=== PATIENT | male | born 1945 | race African-American/Black ===

== ENCOUNTER 2019-12-04 18:59 | Emergency (ER) | payer OTHER ==
[~2019-12-04] VITALS: Ht 170.2 cm; Wt 77.1 kg
[2019-12-04 19:50] LABS: Basophils # (auto) 0 10 ^3/uL (0-0.2); Basophils % (auto) 0.8 % (0.0-2.0); Eosinophils # (auto) 0 10 ^3/uL (0-0.8); Eosinophils % (auto) 0.5 % (0.0-7.0); Hematocrit 42.6 % (41.0-53.0); Hemoglobin 14.4 g/dL (13.5-17.5); Lymphocytes # (auto) 1.7 10 ^3/uL (0.4-5.4); Lymphocytes % (auto) 33.9 % (10.0-50.0); Mean Corpuscular Hemoglobin 30.8 pg (28.0-32.0); Mean Corpuscular Hgb Conc. 33.7 g/dL (32.0-36.0); Mean Corpuscular Volume 91.4 fL (80.0-100.0); Monocytes # (auto) 0.4 10 ^3/uL (0-1.3); Monocytes % (auto) 8.8 % (0.0-12.0); Neutrophils # (auto) 2.8 10 ^3/uL (1.6-8.6); Nucleated Red Blood Cells % 0.1 %; Platelet Count (auto) 203 10^3/uL (140-450); Red Blood Cells 4.66 10^6/uL (4.5-5.90)
[2019-12-04 20:07] LABS: INR 1.12 (0.9-1.15); Partial Thromboplastin Time 28.8 sec (23.64-32.05)
[2019-12-04 20:09] LABS: Alanine Aminotransferase 20 U/L (16-61); Albumin 3.3 g/dL (3.4-5.0); Anion Gap 7 (5-15); Aspartate Aminotransferase 16 U/L (15-37); BUN/Creatinine Ratio 13.6; Blood Urea Nitrogen 16 mg/dL (7-18); Calcium 8.8 mg/dL (8.5-10.1); Carbon Dioxide 23 mmol/L (21-32); Chloride 110 mmol/L (98-107); GFR African American 77 mL/min; GFR Non-African American 64 mL/min; Glucose 108 mg/dL (74-106); Sodium 140 mmol/L (136-145)
[2019-12-04 20:12] LABS: Alkaline Phosphatase 48 U/L (45-117); Bilirubin, Total 0.4 mg/dL (0.2-1.0)
[2019-12-04 21:04] LABS: Blood Alcohol < 3.0 mg/dL (0-5); Magnesium 1.7 mg/dL (1.6-2.6)
[2019-12-04 21:18] LABS: Urine Bacteria FEW /hpf (None Seen); Urine Blood Negative /uL (Negative); Urine Specific Gravity 1.018 (1.001-1.035); Urine Sperm PRESENT /hpf (None Seen); Urine WBC <1 /hpf (0 - 3)
[2019-12-04] MEDS ORDERED: ASPirin-EC 81 mg tab PO ONE (22:00)
[2019-12-04] MEDS ORDERED: cloNIDine HCL 0.1 MG TAB PO ONE (23:00)
[2019-12-05 00:55] VITALS: BP 195/88
[2019-12-05] MEDS ORDERED: LABETALOL HCL 5 MG/ML 4ML SYRINGE IV ONE (01:00)
== END 2019-12-05 01:14 | disposition short-term general hospital (02) ==
LOC: EDBD 18:59 → ER 18:59
DX: R42 Dizziness and giddiness (principal); R47.81 Slurred speech; G45.9 Transient cerebral ischemic attack, unspecified; R00.1 Bradycardia, unspecified; E11.9 Type 2 diabetes mellitus without complications; E78.5 Hyperlipidemia, unspecified; I10 Essential (primary) hypertension
CPT/HCPCS: 36415; 70450; 71045; 80053; 80320; 81001; 83735; 84484; 85025; 85610; 85730; 93005; 96374; 99291

== ENCOUNTER 2023-07-03 16:16 | Inpatient (IN) | payer OTHER ==
[~2023-07-03] VITALS: Ht 170.2 cm; Wt 63.1 kg
[2023-07-03] VITALS (9 sets, daily range): BP systolic 141–176; BP diastolic 73–88; PULSE 51–75; RESP 14–18; TEMP 97.9–98; O2SAT 96–100
[2023-07-03] MEDS ORDERED: LIDOCAINE 2%HCL (LOCAL ANESTH.) INJ 20ML MDV ONE (16:29)
[2023-07-03] MEDS ORDERED: IOHEXOL 350 MG/ML 100ML IJ ONE (16:29)
[2023-07-03 16:38] LABS: Basophils # (auto) 0 10 ^3/uL (0-0.2); Basophils % (auto) 0.5 % (0.0-2.0); Eosinophils # (auto) 0 10 ^3/uL (0-0.8); Eosinophils % (auto) 0.3 % (0.0-7.0); Hematocrit 40.3 % (41.0-53.0); Hemoglobin 13.7 g/dL (13.5-17.5); Lymphocytes # (auto) 1.5 10 ^3/uL (0.4-5.4); Mean Corpuscular Hgb Conc. 33.9 g/dL (32.0-36.0); Mean Corpuscular Volume 91.6 fL (80.0-100.0); Monocytes # (auto) 0.5 10 ^3/uL (0-1.3); Neutrophils # (auto) 4.3 10 ^3/uL (1.6-8.6); Neutrophils % (auto) 67.2 % (37.0-80.0); Red Cell Distribution Width 15.4 % (11.8-14.3); White Blood Cell 6.4 10^3/uL (4.4-10.8)
[2023-07-03] MEDS ORDERED: ATROPINE SULF 1 MG/10ml SYR ONE (16:42)
[2023-07-03] MEDS ORDERED: SODIUM CHL 0.9% 50 ML ONE (16:42)
[2023-07-03] MEDS ORDERED: MIDAZOLAM HCL 2MG/2ML 2ml VIAL (1mg/ml) ONE (16:42)
[2023-07-03] MEDS ORDERED: EPINEPHrine HCL 1 MG/10 ML SYRG ONE (16:42)
[2023-07-03] MEDS ORDERED: fentaNYL CITRATE 100 MCG/2 ML VL ONE (16:42)
[2023-07-03] MEDS ORDERED: ANGIOMAX 250 MG VIAL IV ONE (16:42)
[2023-07-03] MEDS ORDERED: VERAPAMIL 2.5MG/ML INJ 2ML VIAL IV ONE (16:43)
[2023-07-03] MEDS ORDERED: MORPHINE SULFATE INJ 2 MG/ml SYRG IV PRN (16:45)
[2023-07-03] MEDS ORDERED: ACETAMINOPHEN 325 MG TAB PO PRN (16:45)
[2023-07-03] MEDS ORDERED: NITROGLYCERIN 0.4 MG SL TAB SL PRN (16:45)
[2023-07-03] MEDS ORDERED: ONDANSETRON HCL 4 MG/2 ML VIAL IV PRN (16:45)
[2023-07-03 16:54] LABS: INR 1.11 (0.9-1.15); Partial Thromboplastin Time 29.1 SEC (24.5-34.5); Prothrombin Time 11.6 sec (9.3-11.8)
[2023-07-03] MEDS ORDERED: IODIXANOL 320MG/ML 100ML BTL IV ONE (17:04)
[2023-07-03 17:10] LABS: Alanine Aminotransferase 15 U/L (7-40); Albumin 4.2 g/dL (3.2-4.8); Alkaline Phosphatase 64 U/L (46-116); Anion Gap 6 (5-15); Aspartate Aminotransferase 21 U/L (13-40); BUN/Creatinine Ratio 11.5 (10.0-20.0); Bilirubin, Total 0.5 mg/dL (0.2-1.0); Blood Urea Nitrogen 12 mg/dL (9-23); Calcium 9.7 mg/dL (8.5-10.1); Carbon Dioxide 29 mmol/L (20-30); Chloride 108 mmol/L (98-107); Glucose 137 mg/dL (74-106); Sodium 143 mmol/L (136-145); Total Protein 6.9 g/dL (5.7-8.2)
[2023-07-03] MEDS ORDERED: ASPirin 81 mg TAB ONE (17:22)
[2023-07-03] MEDS ORDERED: TICAGRELOR 90 MG TAB ONE (17:23)
[2023-07-03] MEDS: SODIUM CHLORIDE 0.9% 1,000 ML IV SCH (20:49)
[2023-07-03] MEDS ORDERED: ALOG1TAB2 PO (23:02)
[2023-07-03] MEDS ORDERED: FINA5TAB4 PO (23:02)
[2023-07-03] MEDS ORDERED: METF-370 PO (23:02)
[2023-07-04] VITALS (7 sets, daily range): BP systolic 153–183; BP diastolic 67–88; PULSE 61–89; RESP 16–18; TEMP 97.5–98.2; O2SAT 97–100
[2023-07-04] MEDS ORDERED: hydrALAZINE HCL 20 MG/ML VL IV ONE ×2 (06:15→08:45)
[2023-07-04] MEDS: SODIUM CHLORIDE 0.9% 1,000 ML IV SCH ×2 (06:26→12:33)
[2023-07-04] MEDS ORDERED: LOSARTAN POTASSIUM 50 MG TAB PO ONE (10:45)
[2023-07-04] MEDS ORDERED: TICAGRELOR 90 MG TAB PO ONE (10:45)
[2023-07-04] MEDS: ASPirin 81 mg TAB PO SCH (12:30)
[2023-07-04 16:34] LABS: Urine Bacteria NONE SEEN /hpf (None Seen); Urine Blood Negative /uL (Negative); Urine Clarity Clear (Clear); Urine Color Yellow (Yellow); Urine Protein, UAD 1+ (Negative); Urine Specific Gravity 1.022 (1.001-1.035); Urine WBC 1 /hpf (0 - 3)
[2023-07-04] MEDS ORDERED: LOSA100T58 PO (17:09)
[2023-07-04] MEDS ORDERED: ALOG1TAB3 PO (17:09)
[2023-07-04] MEDS ORDERED: ATO40T PO (17:09)
[2023-07-04] MEDS ORDERED: FINA5TAB4 PO (17:09)
[2023-07-04] MEDS ORDERED: METF500S3 PO (17:09)
[2023-07-04] MEDS ORDERED: [UNRECOGNIZED DRUG - CODE] VI (17:09)
[2023-07-04] MEDS ORDERED: GABA-1308 PO (17:09)
[2023-07-04] MEDS ORDERED: CLOP75TA70 PO (17:09)
[2023-07-04] MEDS ORDERED: CHOL200031 PO (17:10)
[2023-07-04] MEDS: ATORVASTATIN 20 MG TAB PO SCH (22:02)
[2023-07-04] MEDS: TICAGRELOR 90 MG TAB PO SCH (22:03)
[2023-07-05] VITALS (9 sets, daily range): BP systolic 121–172; BP diastolic 61–87; PULSE 64–76; RESP 17–18; TEMP 97.4–98.4; O2SAT 98–100
[2023-07-05] MEDS: SODIUM CHLORIDE 0.9% 1,000 ML IV SCH (00:05)
[2023-07-05] MEDS: hydrALAZINE HCL 20 MG/ML VL IV PRN ×2 (01:37→21:07)
[2023-07-05 06:32] LABS: Basophils # (auto) 0 10 ^3/uL (0-0.2); Basophils % (auto) 0.6 % (0.0-2.0); Eosinophils # (auto) 0 10 ^3/uL (0-0.8); Eosinophils % (auto) 0.4 % (0.0-7.0); Hematocrit 40.9 % (41.0-53.0); Lymphocytes # (auto) 0.9 10 ^3/uL (0.4-5.4); Lymphocytes % (auto) 11.3 % (10.0-50.0); Mean Corpuscular Hemoglobin 31.3 pg (28.0-32.0); Mean Corpuscular Hgb Conc. 34.2 g/dL (32.0-36.0); Mean Corpuscular Volume 91.7 fL (80.0-100.0); Monocytes # (auto) 0.7 10 ^3/uL (0-1.3); Monocytes % (auto) 8.7 % (0.0-12.0); Neutrophils # (auto) 6.1 10 ^3/uL (1.6-8.6); Red Blood Cells 4.47 10^6/uL (4.5-5.90); Red Cell Distribution Width 14.9 % (11.8-14.3); White Blood Cell 7.7 10^3/uL (4.4-10.8)
[2023-07-05 06:41] LABS: Anion Gap 7 (5-15); Calcium 9.5 mg/dL (8.5-10.1); Carbon Dioxide 27 mmol/L (20-30); Chloride 108 mmol/L (98-107); Potassium 3.8 mmol/L (3.5-5.1); Sodium 142 mmol/L (136-145)
[2023-07-05 06:46] LABS: Glucose 118 mg/dL (74-106)
[2023-07-05 06:47] LABS: BUN/Creatinine Ratio 11.6 (10.0-20.0); Blood Urea Nitrogen 11 mg/dL (9-23); Triglycerides 43 mg/dL (< 150)
[2023-07-05 06:48] LABS: Cholesterol 100 mg/dL (< 200); LDL Cholesterol 26 mg/dL (< 100)
[2023-07-05 06:49] LABS: HDL Cholesterol 54 mg/dL (40-59)
[2023-07-05] MEDS: FINASTERIDE 5 MG TAB PO SCH (08:12)
[2023-07-05] MEDS: ASPirin 81 mg TAB PO SCH (08:12)
[2023-07-05] MEDS: TICAGRELOR 90 MG TAB PO SCH ×2 (08:12→21:08)
[2023-07-05] MEDS ORDERED: LOSARTAN POTASSIUM 50 MG TAB PO SCH (10:00)
[2023-07-05] MEDS ORDERED: LOSARTAN POTASSIUM 50 MG TAB PO ONE (11:45)
[2023-07-05] MEDS: GABAPENTIN 100 MG CAP PO SCH ×2 (15:03→21:08)
[2023-07-05] MEDS: ATORVASTATIN 20 MG TAB PO SCH (21:08)
[2023-07-06 05:00] VITALS: BP 123/75; PULSE 60; RESP 18; TEMP 98; O2SAT 99
[2023-07-06] MEDS: GABAPENTIN 100 MG CAP PO SCH ×2 (05:39→14:00)
[2023-07-06 08:00] VITALS: PULSE 53
[2023-07-06 09:00] VITALS: BP 154/74; PULSE 57; RESP 16; TEMP 97.8; O2SAT 99
[2023-07-06] MEDS ORDERED: LOSARTAN POTASSIUM 50 MG TAB PO SCH (10:00)
[2023-07-06] MEDS: TICAGRELOR 90 MG TAB PO SCH (10:04)
[2023-07-06] MEDS: ASPirin 81 mg TAB PO SCH (10:04)
[2023-07-06] MEDS: FINASTERIDE 5 MG TAB PO SCH (10:05)
[2023-07-06] MEDS ORDERED: TICA90TA PO (11:01)
[2023-07-06] MEDS ORDERED: ASPI-325 PO (11:01)
[2023-07-06 13:00] VITALS: BP 150/62; PULSE 66; RESP 18; TEMP 97.4; O2SAT 100
== END 2023-07-06 17:06 | disposition home or self-care (01) | DRG 322 ==
LOC: EDBD 16:16 → ER 16:16 → TELE 16:37 → TELE-WESTW 19:04
PROVIDERS: ADMIT Nurse Practitioner Family; ATTEND Internal Medicine
PROC: 027034Z Dilation of Coronary Artery, One Artery with Drug-eluting Intraluminal Device, Percutaneous Approach (ICD-10-PCS; principal; 2023-07-03)
PROC: B211YZZ Fluoroscopy of Multiple Coronary Arteries using Other Contrast (ICD-10-PCS; 2023-07-03)
DX: I21.3 ST elevation (STEMI) myocardial infarction of unspecified site (principal); E78.5 Hyperlipidemia, unspecified; N18.9 Chronic kidney disease, unspecified; I25.10 Atherosclerotic heart disease of native coronary artery without angina pectoris; I12.9 Hypertensive chronic kidney disease with stage 1 through stage 4 chronic kidney disease, or unspecified chronic kidney disease; E11.22 Type 2 diabetes mellitus with diabetic chronic kidney disease; H53.8 Other visual disturbances; Z79.82 Long term (current) use of aspirin; Z82.49 Family history of ischemic heart disease and other diseases of the circulatory system; Z83.3 Family history of diabetes mellitus; Z86.73 Personal history of transient ischemic attack (TIA), and cerebral infarction without residual deficits; E11.319 Type 2 diabetes mellitus with unspecified diabetic retinopathy without macular edema
CPT/HCPCS: 36415; 70450; 71045; 80048; 80053; 80061; 81001; 82962; 83036; 84484; 85025; 85610; 85730; 92941; 93005; 93306; 93454; 97116; 97163; 97530; 99152; 99291; C1874; G0378; J2250; Q9967